=== PATIENT | male | born 1995 | race Two or more races ===

== ENCOUNTER 2025-08-14 10:35 | Emergency (ER) | payer MEDICAID, SELFPAY ==
[2025-08-14 10:40] VITALS: PULSE 50; O2SAT 100; BMI 19.8
[2025-08-14 10:42] VITALS: BP 131/82; PULSE 63; RESP 16; TEMP 36.4; O2SAT 98
--- NOTE | 2025-08-14 10:45 | PC.NURSE ---
Addendum entered by Tony Norton RN 08/14/25 10:57: UPON ARRIVAL, PT ASKED IF HE HIT HIS HEAD; PER PT, HONESTLY, MY MOM CAN TELL YOU BECAUSE I CAN'T REMEMBER. PT CURRENTLY C/O PAIN ON HIS TAILBONE 02/10. PER PT, IT FEELS BRUISED. NO SKIN TEAR OR ABRASION NOTED TO COCCYX AND BUTTOCKS AT THIS TIME. Original Note: BIBA; PER EMS, PT COMING FROM DENTIST FOR A TEETH CLEANING WITH C/O SYNCOPAL EPISODE. PT LANDED ABD HIT BUTTOCKS BUT DID NOT HIT HEAD. NO HEAD TRAUMA FOR THIS INCIDENT. PT ALSO HAD ANOTHER SYNCOPAL EPISODE ON DECEMBER WELL AND ACTUALLY HIT HIT HIS HEAD AND CAUSED A TBI. PT IS SEEING A NEUROLOGIST. ON SCENE, PT'S BP WAS 125/77, 100% RA, FSBS 103, RR 20, HEART RATE WAS IN THE LOW 50'S. PT'S EKG SHOWED SINUS BRADYCARDIA AT A RATE OF 50. NKA, NO MEDS. PMH TBI. PT REPORTS SMOKING WEED THIS AM.
--- NOTE | 2025-08-14 11:00 | EKG_ITS ---
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
--- NOTE | 2025-08-14 11:26 | EDNOTE_ITS ---
<Statement entered by Mable Castillo MD - 08/14/25 16:24> As co-signing physician, I was present and available for consult prn. I concur with the plan and care as documented by the midlevel provider. ED General RME/HPI General Chief complaint: Fall Stated complaint: SYNCOPAL EPISODE AND HIT HEAD WHEN FELL Time Seen by Provider: 08/14/25 11:19 Arrival date/time: 08/14/25 10:35 CC: Tailbone pain HPI patient had syncopal event at the dentist office and falling onto his buttocks and his back of his head and family member with him states he was out for approximately 30 seconds woke back up again this the second time it happened first time was on December 14. The patient has already been seen by PCP and neurologist for the these events and they are no definitive diagnosis but they are doing further tests . Patient is awake alert oriented nontoxic-appearing not in any acute distress denies fever chills chest pain shortness of breath or difficulty breathing. The patient was in the waiting room after having completed his appointment ready to exit when he felt different , and then promptly passed out. Patient does not recall feeling the same sensation in the previous syncopal episode. Family ember states the patient has a history of low blood pressure. Related Data Allergies Allergy/AdvReac Type Severity Reaction Status Date / Time No Known Allergies Allergy Verified 08/14/25 10:43 Review of Systems Review of Systems Narrative Review of Systems: GEN: No fever, no chills, no weight loss EYES: No discharge, no visual changes, no pain HEENT: No ear pain, no congestion, no sore throat PULM: No shortness of breath, no cough, no congestion CV: No chest pain, no dyspnea on exertion, no palpitations GI: No nausea, no vomiting, no diarrhea, no pain, no constipation : No frequency, no urgency, no dysuria MUSC/SKEL: No joint pain, no back pain SKIN: No rash PSYCH: No hallucinations, no depression HEME/LYMPH: No easy bleeding or bruising tendencies NEURO: No weakness, no headache Past Medical History Past Medical History NEUROLOGIC: Positive Head Trauma (TBI 01/19/25) and Traumatic Brain Injury CARDIAC: Negative Congestive Heart Failure RESPIRATORY: Negative Chronic Obstructive Pulmonary Disease (COPD) GENITOURINARY: Negative Renal Disease ENT: Positive Head Trauma (TBI 01/19/25) ENDOCRINE: Negative Diabetes Mellitus Type 1 or Diabetes Mellitus Type 2 Social History SMOKING STATUS: Never smoker ED Exam Narrative Physical exam: [General: Thin but not emaciated, not in any acute distress Head normocephalic small occiput bulging but patient states is old. No new masses depressions abrasions induration ulceration. HEENT: Eyes pupils are PERRLA EOMs intact mouth pink moist membranes uvula is midline swallow symmetrical phonation is normal, no rhinorrhea no raccoon's eyes no estrada signs no pops or clicks with TMJ palpation during mastication. No step-off in the upper or lower mandibles. Swallow symmetrical phonation is normal. Within acceptable limits Neck is supple nontender, no spinous process tenderness with palpation. Chest equal chest rise nontender to palpation Respiratory: Clear to auscultation no wheezes crackles or rubs CV: Rate rhythm is regular no murmurs rubs or clicks Abdomen is distended secondary to body habitus soft nontender no masses positive bowel sounds all 4 quadrants Back: No CVA tenderness no spinous process tenderness from cervical spine thoracic and lumbar spine mild coccyx tenderness with palpation. Skin: Intact no petechiae rash induration ulceration or crepitus Extremities: Moving all extremity against resistance cap refill less than 2 seconds neurosensory intact Neuro: Awake alert oriented x3 Glascow coma 15 no focal deficits] Course Course Course Narrative: Reassessment at 115, the patient has no deterioration neurologic status throughout visit, x-rays are negative, I suspect this is vasovagal secondary to the dentist appointment however the patient continues to have follow-up with a neurologist. Quality Measures none Orders Category Date Time Status EKG (ED ONLY) *Do not use* NOW Care 08/14/25 11:00 Completed EKG (ED Only) Stat Exams 08/14/25 11:00 Draft XR sacrum coccyx min 2V Stat Exams 08/14/25 11:28 Completed CBC Stat Lab 08/14/25 10:50 Completed CMP [Comprehensive Metabolic Panel] Stat Lab 08/14/25 10:50 Completed Drug Screen,Urine Stat Lab 08/14/25 12:40 Received Urinalysis Stat Lab 08/14/25 12:40 Completed Vital Signs Vital signs: Vital Signs Temperature 97.6 F 08/14/25 10:42 Pulse Rate 63 08/14/25 10:42 Respiratory Rate 16 08/14/25 10:42 Blood Pressure 131/82 H 08/14/25 10:42 Pulse Oximetry (%) 98 08/14/25 10:42 Oxygen Delivery Method Room Air 08/14/25 10:42 Discharge Plan Plan Patient Disposition: HOME (Self Care) Problem List Clinical Impression: Syncope, Coccyx contusion Patient/Caregiver Discharge Instructions Education Materials: Causes of Syncope Additional Instructions: Follow-up with the neurologist as stated. If there is a worsening of symptoms return to the emergency room for reevaluation. Print Language: Sinhala Stand Alone Forms: [employer] Award Info., Work/School Release, Patient Portal Info Letter PA/LOGGING WORKER Supervising Physician PA/LOGGING WORKER Supervising Physician: Cirilo Engel ENP [facility] EKG Interpretation EKG #1: EKG Interpretation: EKG performed 1103 shows a ventricular rate of 5 5. Over 171 QRS of 98 QTc of 398 this is sinus bradycardia.
--- NOTE | 2025-08-14 11:28 | XR_ITS ---
EXAMINATION: Sacrum and coccyx 3 views TECHNIQUE: AP inclined AP lateral sacrum and coccyx 3 views Date and time: August 14, 2025, 1156 hours INDICATIONS: Onset sacrococcygeal pain today. FINDINGS: Symmetrical sacral foramina Satisfactory alignment sacrococcygeal segments No fracture IMPRESSION: Satisfactory alignment sacrococcygeal segments
[2025-08-14 11:55] LABS: Basophils # (Auto) 0.0 Thou/mm3 (0.0-0.2); Basophils % (Auto) 0 % (0-2.5); Eosinophils # (Auto) 0.2 Thou/mm3 (0.0-0.5); Eosinophils % (Auto) 2 % (0-10); Hematocrit 42.9 % (41.0-53.0); Hemoglobin 14.6 g/dL (13.5-16.0); Immature Granulocytes Auto 0.10 Thou/mm3 (0.00-0.00); Lymphocytes # (Auto) 2.6 Thou/mm3 (1.0-4.8); Lymphocytes % (Auto) 37 % (10-50); Mean Corpuscular HGB Conc 34.0 g/dl (31.0-37.0); Mean Corpuscular Hemoglobin 29.4 pg (25.0-35.0); Mean Corpuscular Volume 87 fL (80-100); Monocytes # (Auto) 0.6 Thou/mm3 (0.0-0.8); Monocytes % (Auto) 8 % (0-12); Neutrophils # (Auto) 3.6 Thou/mm3 (1.8-7.7); Neutrophils % (Auto) 51 % (37-80); Nucleated Red Blood Cell # 0.00 Thou/mm3 (0.00-0.00); Nucleated Red Blood Cell % 0 /100 WBC (0); Platelet Count 211 Thou/mm3 (140-440); RDW Standard Deviation 40.8 fL (35.1-43.9); Red Blood Count 4.96 Miln/mm3 (4.50-5.90); White Blood Count 7.1 Thou/mm3 (3.8-10.6)
[2025-08-14 12:12] LABS: Alanine Aminotransferase 21 U/L (10-49); Albumin, Serum 4.8 gm/dL (3.5-5.0); Albumin/Globulin Ratio 2.1 (1.2-2.2); Alkaline Phosphatase 81 U/L (46-116); Anion Gap 8 (7-16); Aspartate Amino Transferase 23 U/L (0-34); BUN/Creatinine Ratio 14 Ratio (12-20); Bilirubin,Total 0.5 mg/dL (0.3-1.2); Blood Urea Nitrogen 14 mg/dL (9-23); Calcium 9.4 mg/dL (8.3-10.6); Calcium (Corrected) 9.4 mg/dL (8.5-10.1); Carbon Dioxide 27.8 mMol/L (20.0-31.0); Chloride 106 mMol/L (98-107); Creatinine (Component) 1.0 mg/dL (0.6-1.3); Estimated Creatinine Clearance 100.2 mL/min (>60); Globulin 2.3 gm/dL (2.3-3.5); Glucose 105 mg/dL (74-106); Osmolality,Calculated 283 (275-295); Potassium 4.0 mMol/L (3.4-5.1); Sodium 142 mMol/L (136-145); Total Protein 7.1 gm/dL (5.7-8.2); eGFR > 60 See Note
--- NOTE | 2025-08-14 12:38 | PC.NURSE ---
PT INFORMED ABOUT NEED FOR URINE AND GIVEN URINAL
[2025-08-14 12:45] LABS: Collection Type, Urine Clean Catch; RBC,Urine 0 /hpf (0-3); WBC,Urine 0 /hpf (0-5)
[2025-08-14 13:05] LABS: Bacteria,Urine Rare; Bilirubin,Urine Negative (Negative); Blood,Urine Negative (Negative); Clarity,Urine Turbid (Clear/Hazy); Color,Urine Lt-Yellow (Lt Yel-Yel); Glucose, Urine Negative (Negative); Ketones,Urine Negative (Negative); Leukocyte Esterase,Urine Negative (Negative); Nitrite,Urine Negative (Negative); PH,Urine 8.0 (5.0-7.0); Protein,Urine Negative (Neg - Trace); Specific Gravity,Urine 1.019 (1.001-1.035); Squamous Epithelial Cell,Urine < 1 /hpf (0-5); Urobilinogen,Urine Negative mg/dL (0.0-1.0)
[2025-08-14 13:24] LABS: Amphetamine/Methamp Scrn,U Negative (Negative); Barbiturate Screen,Urine Negative (Negative); Benzodiazepines Screen,Urine Negative (Negative); Benzoylecgonine Screen, Ur Negative (Negative); Fentanyl Screen,Urine Negative (Negative); Opiate Screen,Urine Negative (Negative); THC Screen,Urine Positive (Negative)
[2025-08-14 13:29] VITALS: BP 109/74; PULSE 49; RESP 14; O2SAT 98
== END 2025-08-14 13:29 | disposition home or self-care (01) ==
LOC: SERX 13:38
PROVIDERS: Registered Nurse General Practice; Emergency Provider Emergency Medicine
DX: R55 Syncope and collapse (principal); S30.0XXA Contusion of lower back and pelvis, initial encounter; W18.39XA Other fall on same level, initial encounter
CPT/HCPCS: 36415; 72220; 80053; 80307; 81001; 85025; 93005; 99283